=== PATIENT | male | born 1960 | race Caucasian/White ===

== ENCOUNTER → 2017-07-10 | Outpatient (CLI) | payer MEDICARE, OTHER ==
[~2017-07-10] VITALS: Ht 182.9 cm; Wt 134.1 kg
[2017-07-10 16:18] LABS: URINE WBC 0 /hpf (0-3)
[2017-07-10 16:29] LABS: EOS # 0.1 (0.04-0.40); EOS % 0.8 % (0.0-4.0); HEMATOCRIT 45.9 % (42.0-52.0); HEMOGLOBIN 14.7 g/dL (13.5-18.0); LYMPH# 1.2 (1.50-4.00); MEAN CELL VOLUME 94 fl (78-100); MEAN CORPUSCULAR HEMOGLOBIN 30 pg (27-31); MEAN CORPUSCULAR HGB CONC 32 g/dL (33-37); MEAN PLATELET VOLUME 10.6 fl (7.4-10.4); MONO # 0.7 (0.20-0.80); NEU # 5.9 (1.40-6.50); PLATELET COUNT 323 K/mm3 (130-400); RED BLOOD COUNT 4.86 M/mm3 (4.20-5.60); RED CELL DISTRIBUTION WIDTH 13.9 % (11.5-14.5); WHITE BLOOD COUNT 7.9 K/mm3 (4.8-10.8)
[2017-07-10 16:42] LABS: ALBUMIN 4.7 g/dL (3.5-5.0); BUN/CREATININE RATIO 14.7 (6.0-26.0); CALCIUM 9.5 mg/dL (8.4-10.2); POTASSIUM 4.1 mmol/L (3.6-5.0); TOTAL BILIRUBIN 0.7 mg/dL (0.2-1.3); TOTAL PROTEIN 8.2 g/dL (6.3-8.2)
--- NOTE | 2017-07-10 17:45 | NUR ---
DID NOT OBTAIN VITAL SIGNS AT TIME OF OUTPATIENT VISIT.
[2017-07-10 20:53] LABS: URINE APPEARANCE CLEAR; URINE BILIRUBIN NEGATIVE (NEGATIVE); URINE BLOOD NEGATIVE (NEGATIVE); URINE COLOR YELLOW; URINE GLUCOSE NEGATIVE (NEGATIVE); URINE KETONE NEGATIVE (NEGATIVE); URINE LEUKOCYTE ESTERASE NEGATIVE (NEGATIVE); URINE NITRATE NEGATIVE (NEGATIVE); URINE PROTEIN(semi-quant) NEGATIVE (NEGATIVE); URINE UROBILINOGEN NORMAL (NORMAL)
[2017-07-11 00:42] LABS: TESTOSTERONE 445 ng/dL (221-716)
[2017-07-11 13:01] LABS: ERYTHROCYTE SEDIMENTATION RATE 2 mm/hr (0-20)
[2017-07-11 18:46] LABS: CREATININE OTHER SOURCE 13 mg/dL (())
== END ==
LOC: AMSURD 16:10
PROVIDERS: Internal Medicine
DX: M1A.9XX0 Chronic gout, unspecified, without tophus (tophi) (principal); E11.9 Type 2 diabetes mellitus without complications; Z12.5 Encounter for screening for malignant neoplasm of prostate; E05.00 Thyrotoxicosis with diffuse goiter without thyrotoxic crisis or storm; E78.2 Mixed hyperlipidemia; N52.1 Erectile dysfunction due to diseases classified elsewhere; Z12.11 Encounter for screening for malignant neoplasm of colon; I10 Essential (primary) hypertension; R20.2 Paresthesia of skin

== ENCOUNTER → 2017-07-12 | Outpatient (CLI) | payer MEDICARE, OTHER | LOC: LAB 14:50 | DX: Z12.11 Encounter for screening for malignant neoplasm of colon (principal); Z88.6 Allergy status to analgesic agent ==

== ENCOUNTER → 2017-07-13 | Outpatient (CLI) | payer MEDICARE, OTHER ==
[2017-07-13 14:20] LABS: PROTHROMBIN TIME 21.6 SECONDS (9.0-12.0)
== END ==
LOC: LAB 13:33
PROVIDERS: Internal Medicine
DX: Z95.2 Presence of prosthetic heart valve (principal); E11.9 Type 2 diabetes mellitus without complications; I10 Essential (primary) hypertension

== ENCOUNTER → 2017-10-29 | Outpatient (CLI) | payer MEDICARE, OTHER | LOC: RAD 15:00 | DX: M51.16 Intervertebral disc disorders with radiculopathy, lumbar region (principal) ==

== ENCOUNTER 2017-12-13 15:30 | Outpatient (RCR) | payer MEDICARE, OTHER | END 2017-12-13 16:00 | disposition home or self-care (01) | LOC: PT 15:30 | DX: M47.26 Other spondylosis with radiculopathy, lumbar region (principal); E11.9 Type 2 diabetes mellitus without complications ==

== ENCOUNTER → 2018-07-11 | Outpatient (CLI) | payer MEDICARE, OTHER ==
[2018-07-11 17:28] LABS: EOS # 0.1 (0.04-0.40); EOS % 1.2 % (0.0-4.0); HEMATOCRIT 46.7 % (42.0-52.0); HEMOGLOBIN 15.1 g/dL (13.5-18.0); LYMPH# 1.2 (1.50-4.00); MEAN CELL VOLUME 94 fl (78-100); MEAN CORPUSCULAR HEMOGLOBIN 30 pg (27-31); MEAN CORPUSCULAR HGB CONC 32 g/dL (33-37); MEAN PLATELET VOLUME 11.5 fl (7.4-10.4); MONO # 0.8 (0.20-0.80); NEU # 5.6 (1.40-6.50); PLATELET COUNT 304 K/mm3 (130-400); RED BLOOD COUNT 4.98 M/mm3 (4.20-5.60); WHITE BLOOD COUNT 7.8 K/mm3 (4.8-10.8)
[2018-07-11 17:30] LABS: ALBUMIN 4.7 g/dL (3.5-5.0); ALT/SGPT 26 U/L (21-72); AST-SGOT 46 U/L (17-59); CALCIUM 9.8 mg/dL (8.4-10.2); CARBON DIOXIDE 32 mmol/L (22-30); GLUCOSE 288 mg/dL (75-110); POTASSIUM 4.3 mmol/L (3.6-5.0); SODIUM 137 mmol/L (137-145); TOTAL BILIRUBIN 0.7 mg/dL (0.2-1.3); TOTAL PROTEIN 7.7 g/dL (6.3-8.2)
[2018-07-11 17:56] LABS: URINE COLOR LIGHT YELLOW
[2018-07-11 17:57] LABS: URINE APPEARANCE CLEAR; URINE BILIRUBIN NEGATIVE (NEGATIVE); URINE BLOOD NEGATIVE (NEGATIVE); URINE KETONE NEGATIVE (NEGATIVE); URINE LEUKOCYTE ESTERASE NEGATIVE (NEGATIVE); URINE NITRATE NEGATIVE (NEGATIVE); URINE PROTEIN(semi-quant) NEGATIVE (NEGATIVE); URINE UROBILINOGEN NORMAL (NORMAL); URINE WBC 0-1 /hpf (0-3)
[2018-07-11 19:03] LABS: ERYTHROCYTE SEDIMENTATION RATE 9 mm/hr (0-20)
[2018-07-12 12:48] LABS: TESTOSTERONE 268 ng/dL (221-716)
== END ==
LOC: LAB 16:57
PROVIDERS: Internal Medicine
DX: Z12.5 Encounter for screening for malignant neoplasm of prostate (principal); Z12.11 Encounter for screening for malignant neoplasm of colon; E11.9 Type 2 diabetes mellitus without complications; I10 Essential (primary) hypertension; M10.9 Gout, unspecified; N52.9 Male erectile dysfunction, unspecified

== ENCOUNTER → 2018-07-12 | Outpatient (CLI) | payer MEDICARE, OTHER | LOC: LAB 09:49 | DX: Z12.11 Encounter for screening for malignant neoplasm of colon (principal) ==

== ENCOUNTER → 2018-12-24 | Outpatient (CLI) | payer MEDICARE, OTHER ==
[2018-12-24 17:35] LABS: EOS # 0.1 (0.04-0.40); EOS % 1.4 % (0.0-4.0); HEMATOCRIT 42.8 % (42.0-52.0); HEMOGLOBIN 13.7 g/dL (13.5-18.0); LYMPH# 1.2 (1.50-4.00); MEAN CELL VOLUME 97 fl (78-100); MEAN CORPUSCULAR HEMOGLOBIN 31 pg (27-31); MEAN CORPUSCULAR HGB CONC 32 g/dL (33-37); MEAN PLATELET VOLUME 10.7 fl (7.4-10.4); MONO # 0.6 (0.20-0.80); NEU # 5.7 (1.40-6.50); PLATELET COUNT 371 K/mm3 (130-400); RED BLOOD COUNT 4.43 M/mm3 (4.20-5.60); RED CELL DISTRIBUTION WIDTH 13.9 % (11.5-14.5); WHITE BLOOD COUNT 7.6 K/mm3 (4.8-10.8)
[2018-12-24 21:04] LABS: ERYTHROCYTE SEDIMENTATION RATE 28 mm/hr (0-20)
[2018-12-24 21:13] LABS: ALBUMIN 4.4 g/dL (3.5-5.0); POTASSIUM 4.2 mmol/L (3.5-5.1)
[2018-12-24 21:14] LABS: CALCIUM 10.4 mg/dL (8.3-10.5)
[2018-12-24 21:16] LABS: TOTAL PROTEIN 6.9 g/dL (6.4-8.3)
[2018-12-24 21:18] LABS: TOTAL BILIRUBIN 0.6 mg/dL (0.2-1.2)
== END ==
LOC: LAB 17:00
PROVIDERS: Internal Medicine
DX: Z12.5 Encounter for screening for malignant neoplasm of prostate (principal); Z12.11 Encounter for screening for malignant neoplasm of colon; E11.9 Type 2 diabetes mellitus without complications; I10 Essential (primary) hypertension; N52.9 Male erectile dysfunction, unspecified; M10.9 Gout, unspecified

== ENCOUNTER → 2019-05-27 | Outpatient (CLI) | payer MEDICARE, OTHER ==
[2019-05-27 16:04] LABS: EOS # 0.1 (0.04-0.40); EOS % 1.1 % (0.0-4.0); HEMATOCRIT 46.7 % (42.0-52.0); LYMPH# 1.3 (1.50-4.00); MEAN CELL VOLUME 95 fl (78-100); MEAN CORPUSCULAR HEMOGLOBIN 31 pg (27-31); MEAN CORPUSCULAR HGB CONC 32 g/dL (33-37); MEAN PLATELET VOLUME 11.4 fl (7.4-10.4); MONO # 0.8 (0.20-0.80); NEU # 6.3 (1.40-6.50); PLATELET COUNT 300 K/mm3 (130-400); RED BLOOD COUNT 4.92 M/mm3 (4.20-5.60); RED CELL DISTRIBUTION WIDTH 13.9 % (11.5-14.5); WHITE BLOOD COUNT 8.5 K/mm3 (4.8-10.8)
[2019-05-27 16:21] LABS: ALBUMIN 4.5 g/dL (3.5-5.0); POTASSIUM 4.2 mmol/L (3.5-5.1)
[2019-05-27 16:22] LABS: CALCIUM 9.9 mg/dL (8.3-10.5)
[2019-05-27 16:24] LABS: TOTAL PROTEIN 7.7 g/dL (6.4-8.3)
[2019-05-27 16:25] LABS: TOTAL BILIRUBIN 0.6 mg/dL (0.2-1.2)
== END ==
LOC: LAB 15:48
PROVIDERS: Internal Medicine
DX: E11.9 Type 2 diabetes mellitus without complications (principal)

== ENCOUNTER → 2020-01-13 | Outpatient (CLI) | payer MEDICARE, OTHER ==
[2020-01-13 10:41] LABS: EOS # 0.1 (0.04-0.40); EOS % 1.6 % (0.0-4.0); HEMATOCRIT 47.5 % (42.0-52.0); HEMOGLOBIN 15.3 g/dL (13.5-18.0); LYMPH# 1.1 (1.50-4.00); MEAN CELL VOLUME 96 fl (78-100); MEAN CORPUSCULAR HEMOGLOBIN 31 pg (27-31); MEAN CORPUSCULAR HGB CONC 32 g/dL (33-37); MEAN PLATELET VOLUME 11.3 fl (7.4-10.4); MONO # 0.7 (0.20-0.80); NEU # 5.6 (1.40-6.50); PLATELET COUNT 269 K/mm3 (130-400); RED BLOOD COUNT 4.93 M/mm3 (4.20-5.60); RED CELL DISTRIBUTION WIDTH 13.6 % (11.5-14.5); WHITE BLOOD COUNT 7.5 K/mm3 (4.8-10.8)
[2020-01-13 10:45] LABS: ALBUMIN 4.4 g/dL (3.5-5.0); POTASSIUM 4.5 mmol/L (3.5-5.1)
[2020-01-13 10:46] LABS: CALCIUM 9.4 mg/dL (8.3-10.5)
[2020-01-13 10:48] LABS: TOTAL PROTEIN 7.5 g/dL (6.4-8.3)
[2020-01-13 10:50] LABS: TOTAL BILIRUBIN 0.5 mg/dL (0.2-1.2)
[2020-01-13 10:55] LABS: MAGNESIUM 1.93 mg/dL (1.60-2.60)
[2020-01-13 11:48] LABS: ERYTHROCYTE SEDIMENTATION RATE 3 mm/hr (0-20)
[2020-01-14 15:15] LABS: CREATININE OTHER SOURCE 31 mg/dL (())
== END ==
LOC: LAB 10:13
PROVIDERS: Internal Medicine
DX: Z12.5 Encounter for screening for malignant neoplasm of prostate (principal); Z12.11 Encounter for screening for malignant neoplasm of colon; E11.9 Type 2 diabetes mellitus without complications; I10 Essential (primary) hypertension; M1A.9XX0 Chronic gout, unspecified, without tophus (tophi)

== ENCOUNTER → 2020-02-02 | Outpatient (CLI) | payer MEDICARE, OTHER | LOC: LAB 13:14 | DX: Z12.5 Encounter for screening for malignant neoplasm of prostate (principal); Z12.11 Encounter for screening for malignant neoplasm of colon; E11.9 Type 2 diabetes mellitus without complications ==